=== PATIENT | female | born 1990 | race Caucasian/White ===

== ENCOUNTER 2018-11-08 12:40 | Emergency (ER) | payer SELFPAY ==
[2018-11-08] MEDS ORDERED: Ondansetron 4 MG Tab.DIS PO ONE (13:37)
[2018-11-08] MEDS ORDERED: Clindamycin HCl 150 MG Cap PO ONE (13:37)
[2018-11-08] MEDS ORDERED: HYDROmorphone 1 MG/ML Syringe IVPUSH ONE (13:37)
[2018-11-08] MEDS ORDERED: Acetaminophen/HYDROcodone 325-5 MG Tab PO ONE (13:43)
--- NOTE | 2018-11-08 13:57 | EDM.PDOC ---
ED HPI GENERAL MEDICAL PROBLEM - General Chief Complaint: General Stated Complaint: TOOTH PAIN Time Seen by Provider: 11/08/18 13:05 - History of Present Illness INITIAL COMMENTS - FREE TEXT/NARRATIVE: Patient presents with left upper tooth pain that started abruptly when trying to eat a piece of pizza a couple hours ago. She says this tooth has been broken for a few months. She denies any recent drug use and denies any history of meth use. She hasn't seen a doctor or dentist in years because she can't afford it but her just recently got benefits started including dental that will be effective on November 24. She took 8 tablets of Tylenol 500 mg today for the pain. She says she is allergic to penicillin and ibuprofen which manifested several years ago as throat swelling when used together. She isn't sure which one she is allergic to but guesses it is the penicillin since it is in her family. She hasn't used either since. She gets nausea with naproxen but has a Rx bottle of it at home that she uses rarely. Treatments [employer]: Reports: Acetaminophen Left Upper Jaw Pain Score (Numeric/FACES): 10 - Related Data Allergies Allergy/AdvReac Type Severity Reaction Status Date / Time bee pollen Allergy Anaphylactic Verified 11/08/18 12:57 Shock ibuprofen Allergy Edema Verified 11/08/18 12:57 methylphenidate Allergy Cannot Verified 11/08/18 12:57 [From Ritalin] Remember nut - unspecified Allergy Anaphylactic Verified 11/08/18 12:57 Shock Penicillins Allergy Edema Verified 11/08/18 12:57 tomato Allergy Anaphylactic Verified 11/08/18 12:57 Shock Home Meds: Home Meds Cyclobenzaprine [Flexeril] 10 mg PO DAILY PRN 11/08/18 [History] Naproxen [Naprosyn] 375 mg PO BID 11/08/18 [History] Social & Family History - Tobacco Use Smoking Status *Q: Current Every Day Smoker Years of Tobacco use: 10 Packs/Tins Daily: 0.3 Second Hand Smoke Exposure: Yes - Caffeine Use Caffeine Use: Reports: Coffee, Energy Drinks, Soda - Alcohol Use Days Per Week of Alcohol Use: 2 Number of Drinks Per Day: 2 Total Drinks Per Week: 4 - Recreational Drug Use Recreational Drug Use: No ED ROS GENERAL - Review of Systems Review Of Systems: See Below Constitutional: Denies: Fever, Chills, Malaise, Weakness HEENT: Denies: Ear Discharge, Ear Pain, Throat Swelling Respiratory: Denies: Shortness of Breath, Cough Cardiovascular: Denies: Chest Pain, Lightheadedness GI/Abdominal: Denies: Abdominal Pain, Anorexia, Constipation, Diarrhea, Vomiting : Reports: No Symptoms Musculoskeletal: Reports: No Symptoms Neurological: Denies: Confusion, Seizure, Syncope Psychiatric: Denies: Agitation, Anxiety ED EXAM, GENERAL - Physical Exam Exam: See Below Exam Limited By: No Limitations General Appearance: Alert, WD/WN, No Apparent Distress, Anxious Eye Exam: Bilateral Eye: EOMI, Normal Inspection, PERRL Ears: Normal External Exam, Normal Canal, Hearing Grossly Normal, Normal TMs Nose: Normal Inspection, No Blood Throat/Mouth: Normal Lips, Normal Oropharynx, Normal Voice, No Airway Compromise , Other (very poor dentition with multiple caries and inflammation. Left upper posterior molar is broken and very tender to touch. No obvious abscess but erythema and inflammation are present.) Head: Atraumatic, Normocephalic, Facial Tenderness (left posterior mandible) Neck: Normal Inspection, Supple, Non-Tender, Full Range of Motion Respiratory/Chest: No Respiratory Distress, Lungs Clear, Normal Breath Sounds, No Accessory Muscle Use Cardiovascular: Regular Rate, Rhythm, No Murmur GI/Abdominal: Normal Bowel Sounds, Soft, Non-Tender, No Organomegaly, No Distention Back Exam: Normal Inspection, Full Range of Motion. No: CVA Tenderness (L), CVA Tenderness (R) Extremities: Normal Inspection, Normal Range of Motion Neurological: Alert, Oriented, Normal Cognition, No Motor/Sensory Deficits Psychiatric: Normal Affect, Normal Mood Skin Exam: Warm, Dry, Intact, Normal Color, No Rash Course - Vital Signs Last Recorded V/S: Last Vital Signs Temp 97.6 F 11/08/18 12:48 Pulse 102 H 11/08/18 12:48 Resp 20 11/08/18 12:48 BP 107/63 11/08/18 12:48 Pulse Ox 96 11/08/18 12:48 - Orders/Labs/Meds Meds: Medications Discontinued Medications Generic Name Dose Route Start Last Admin Trade Name Freq PRN Reason Stop Dose Admin Hydrocodone Bitart/Acetaminophen 4 tab 11/08/18 13:43 [place]perance 325-5 Mg PO 11/08/18 13:44 ONETIME ONE Clindamycin HCl 1,200 mg 11/08/18 13:37 Cleocin PO 11/08/18 13:38 ONETIME ONE Hydromorphone HCl 1 mg 11/08/18 13:37 Dilaudid IVPUSH 11/08/18 13:38 ONETIME ONE Ondansetron HCl 20 mg 11/08/18 13:37 Zofran Odt PO 11/08/18 13:38 ONETIME ONE - Re-Assessments/Exams Free Text/Narrative Re-Assessment/Exam: 11/08/18 14:01 Discussed findings with patient and her . Discussed that she shouldn't take the hydrocodone until 11:00 tomorrow morning because of her 4 grams of tylenol today. Also advised probiotics or yogurt while she is taking the Clindamycin. Advised her to take Naproxen morning and night and can use the Zofran ahead of it to prevent nausea. Departure - Departure Time of Disposition: 13:58 Disposition: Home, Self-Care 01 Condition: Good Clinical Impression: Tooth pain - Discharge Information Referrals: PCP,None [Primary Care Provider] - Additional Instructions: 1. Take the medications as directed, but don't take the hydrocodone with acetaminophen until late tomorrow morning. 2. The Zofran (ondansetron) is for nausea to help you tolerate the naproxen. 3. Follow up with a dentist as soon as possible.
== END 2018-11-08 14:45 | disposition home or self-care (01) ==
LOC: KA.ED 12:40
DX: K08.89 Other specified disorders of teeth and supporting structures (principal); F17.210 Nicotine dependence, cigarettes, uncomplicated; Z88.0 Allergy status to penicillin
CPT/HCPCS: 96374; 99283; A9270; J1170